=== PATIENT | male | born 1990 | race Caucasian/White ===

== ENCOUNTER 2018-05-24 22:37 | Emergency (ER) | payer MEDICAID ==
[~2018-05-24] VITALS: Ht 182.9 cm; Wt 75.5 kg
[2018-05-24 22:39] VITALS: BP 149/100
[2018-05-24] MEDS ORDERED: CEFTRIAXONE 1,000 MG ONE (23:21)
[2018-05-24] MEDS ORDERED: CEFTRIAXONE 1,000 MG IM ONE (23:30)
== END 2018-05-25 | disposition home or self-care (01) ==
LOC: ED 23:14
DX: A54.01 Gonococcal cystitis and urethritis, unspecified (principal)
CPT/HCPCS: 87491; 87591; 96372; 99284; J0696

== ENCOUNTER 2018-12-05 23:01 | Emergency (ER) | payer MEDICAID ==
[~2018-12-05] VITALS: Ht 182.9 cm; Wt 75.0 kg
[2018-12-05 23:04] VITALS: BP 142/93
[2018-12-05] MEDS ORDERED: DOXYCYCLINE 100MG TABLET PO ONE (23:30)
[2018-12-05] MEDS ORDERED: CEFTRIAXONE 250 MG IM ONE (23:30)
[2018-12-05] MEDS ORDERED: CEFTRIAXONE 250 MG ONE (23:34)
[2018-12-05] MEDS ORDERED: LIDOCAINE-MPF 1%, 2ML ONE (23:34)
[2018-12-05] MEDS ORDERED: DOXYCYCLINE 100MG TABLET ONE (23:34)
[2018-12-05 23:43] LABS: CULTURE INDICATED? YES; MICROSCOPIC AUTO
== END 2018-12-06 00:15 | disposition home or self-care (01) ==
LOC: ED 23:31
DX: A54.9 Gonococcal infection, unspecified (principal)
CPT/HCPCS: 81001; 87086; 87491; 87591; 96372; 99283; J0696

== ENCOUNTER 2019-12-08 00:33 | Emergency (ER) | payer MEDICAID ==
[~2019-12-08] VITALS: Ht 182.9 cm; Wt 82.2 kg
[2019-12-08 00:35] VITALS: BP 133/92
[2019-12-08] MEDS ORDERED: AZITHROMYCIN 500 MG TABLET PO ONE (01:00)
[2019-12-08] MEDS ORDERED: CEFTRIAXONE 250 MG IM ONE (01:00)
[2019-12-08] MEDS ORDERED: CEFTRIAXONE 250 MG ONE (01:01)
[2019-12-08] MEDS ORDERED: LIDOCAINE-MPF 1%, 5ML ONE (01:02)
[2019-12-08] MEDS ORDERED: AZITHROMYCIN 250 MG TABLET ONE (01:02)
[2019-12-08 02:55] LABS: MICROSCOPIC NOT IND
[2019-12-08 02:58] LABS: CULTURE INDICATED? NO
== END 2019-12-08 01:17 | disposition home or self-care (01) ==
LOC: ED 01:15
DX: A54.9 Gonococcal infection, unspecified (principal)
CPT/HCPCS: 81003; 87491; 87591; 96372; 99283; J0696